=== PATIENT | female | born 1960 | race Caucasian/White ===

== ENCOUNTER → 2016-03-21 | Day surgery (SDC) | payer BC ==
[~2016-03-21] VITALS: Ht 161.3 cm; Wt 89.4 kg
[2016-03-21] VITALS (8 sets, daily range): BP systolic 139–151; BP diastolic 77–92
[~2016-03-21] MED LIST: AMOXICILLIN500 MG ORAL; LR 1000ml 1,000 ML IV SCH; LR 1000ml 1,000 ML IVLG SCH; LR 1000ml ONE; Propofol 10mg/ml 20ml IV ONE; ZOLOFT100 MG ORAL; fentaNYL 100 mcg/2 mL IV PRN
--- NOTE | 2016-03-21 10:07 | Anethesia Preoperative Eval ---
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 Surgical Procedure: Colonoscopy, EGD Allergies: Coded Allergies: No Known Allergies (Unverified , 03/18/16) Medications: see eMAR Past Medical History Cardiovascular: Denies: CAD, HTN, CT, arrhythmia, other, valve dz Pulmonary: Reports: SHANIQUE, Denies: COPD, asthma, other Gastrointestinal/Genitourinary: Denies: CRI, ESRD, GERD, other Neurologic/Psychiatric: Reports: depression/anxiety, Denies: CVA, TIA, dementia, other Endocrine: Denies: DM, hypothyroidism, other, steroids HEENT: Denies: [place] (L), [place] (R), cataract (L), cataract (R), glaucoma, other Hematology/Immune: Denies: DVT, anemia, bleeding disorder, other Musculoskeletal/Integumentary: Denies: DDD, DJD, OA, RA, edema, other PMH Narrative: SHANQIUE, adrenal tumor PSxH Narrative: Ankle, knee, uterine cystectomy Anesthesia Pre-op Phys. Exam Physician Exam Last Vital Signs Date Time Temp Pulse Resp B/P Pulse Ox O2 Delivery O2 Flow Rate FiO2 03/21/16 09:53 98.9 75 17 141/77 96 Room Air Constitutional: NAD Neurologic: CN 2-12 intact Cardiovascular: RRR, no M/R/G Respiratory: CTA Gastrointestinal: S/NT/ND Airway Exam Mallampati Score: Class II MO: full ROM: full Teeth: intact Anesthesia Pre-op A/P Risk Assessment & Plan Assessment: Colonoscopy, EGD Plan: GA, TIVA Status Change Before Surgery: No Pre-Antibiotics Drug: None LUNA DAVISON M.D. Mar 21, 2016 10:07
--- NOTE | 2016-03-21 10:08 | Immediate Post-Op Evaluation ---
Immediate Post-Op Evalulation Immediate Post-Op Evalulation Procedure: GD, Colonoscopy Date of Evaluation: Mar 21, 2016 Time of Evaluation: 11:34 IV Fluids: 500 Blood Pressure Systolic: 141 Blood Pressure Diastolic: 92 Pulse Rate: 60 Respiratory Rate: 18 O2 Sat by Pulse Oximetry: 99 Temperature (Fahrenheit): 98.0 Pain Score (1-10): 0 Nausea: No Vomiting: No Complications No complication Patient Status: awake, patent, none Hydration Status: adequate Drug: None LUNA DAVISON M.D. Mar 21, 2016 10:08
--- NOTE | 2016-03-21 10:56 | Short Stay Surgery H&P ---
History of Present Illness History of Present Illness Chief Complaint see paper H&P HPI Jackie Michele is a 55 year old female who was admitted on for Colon Screening Patient History Allergies: Coded Allergies: No Known Allergies (Unverified , 03/18/16) PAST MEDICAL HISTORY: Past Surgeries: Social History: Medication History Scheduled Amoxicillin* (Amoxil*), 500 MG ORAL BID, (Reported) Sertraline Hcl* (Zoloft*), 100 MG ORAL DAILY, (Reported) Physical Exam Vital Signs Last Vital Signs Date Time Temp Pulse Resp B/P Pulse Ox O2 Delivery O2 Flow Rate FiO2 03/21/16 09:53 98.9 75 17 141/77 96 Room Air Plan Attestation Are the patient's medical conditions optimized for surgery? PHAM CADET Mar 21, 2016 10:56
--- NOTE | 2016-03-21 10:57 | Pre-Procedure Note/Attestation ---
Pre-Procedure Note/Attestation Complete Prior to Procedure Planned Procedure: not applicable Procedure Narrative: EGD/Colon Indications for Procedure Pre-Operative Diagnosis: Abnormal CT screening colon Attestation I attest that I discussed the nature of the procedure; its benefits; risks and complications; and alternatives (and the risks and benefits of such alternatives ), prior to the procedure, with the patient (or the patient's legal apprenticeship training representative). I attest that, if there was a reasonable possibility of needing a blood transfusion, the patient (or the patient's legal apprenticeship training representative) was given the [facility] standardized written summary, pursuant to the Papo Gabe Blood Safety Act ([place] Health and Safety Code # 1645, as amended). I attest that I re-evaluated the patient just prior to the surgery and that there has been no change in the patient's H&P, except as documented below: PHAM CADET Mar 21, 2016 10:57
--- NOTE | 2016-03-21 11:35 | 48 Hour Post Anesthesia Eval ---
Post Anesthesia Evaluation Procedure: GD, Colonoscopy Date of Evaluation: Mar 21, 2016 Time of Evaluation: 12:00 Blood Pressure Systolic: 147 0: 84 Pulse Rate: 62 Respiratory Rate: 14 O2 Sat by Pulse Oximetry: 100 Airway: patent Nausea: No Vomiting: No Pain Intensity: 0 Hydration Status: adequate Cardiopulmonary Status: Stable Mental Status/LOC: patient returned to baseline Follow-up Care/Observations: As per GI Post-Anesthesia Complications: No anesthetic complication Follow-up care needed: N/A LUNA DAVISON M.D. Mar 21, 2016 11:35
--- NOTE | 2016-03-21 18:47 | Operative Note - Dictated ---
DATE OF OPERATION: 03/21/2016 PROCEDURE: Upper gastrointestinal endoscopy with biopsy as well as colonoscopy with biopsy. SURGEON: Farideh Wheatley M.D. ANESTHESIA: Please see the separate anesthesiologist notes for details. PRE-ENDOSCOPIC DIAGNOSIS: Abnormal CT scan and need for screening colonoscopy. POST-ENDOSCOPIC DIAGNOSES: 1. Mild erosive gastritis status post biopsy of the antrum. 2. Thickened versus diminutive polyp present in the colon status post biopsy. 3. Mild internal hemorrhoids. PROCEDURE: The procedure, its risks, indications, alternatives, and possible complications were explained to the patient and informed consent was obtained. The patient was then sedated in the left lateral decubitus position. A diagnostic upper endoscope was introduced through the oropharynx and advanced to the duodenum. The endoscope was then gradually withdrawn. The mucosa was examined carefully. Examination of the upper gastrointestinal mucosa revealed mildly erosive gastritis in the antrum. Biopsies were sent to pathology for review. There was otherwise no other findings. The endoscope was removed. Rectal exam was done and the colonoscope was introduced in the rectum and advanced to the cecum without difficulty. The cecum was identified by the appearance of the ileocecal valve. The colonoscope was then gradually withdrawn. The mucosa examined carefully. Examination of colonic mucosa revealed a diminutive polyp versus thickened fold in the colon, which was biopsied and sent to pathology for review. Retroflex view of the rectum revealed mild internal hemorrhoids. The colonoscope was removed. The patient was sent to recovery in good condition. COMPLICATIONS: None. RECOMMENDATIONS: 1. Follow up biopsy results. 2. Check and treat Helicobacter pylori if positive. 3. Outpatient oncology evaluation regarding adrenal mass. Thank you for asking me to participate in the care of this patient. Farideh Wheatley M.D. DR: Yvonne JOB#: [id number] CC: Maximo Nguyen M.D.; Fax#: [phone] Lancaster M.D. ; Fax#: [phone]
--- NOTE | 2016-03-29 14:29 | Brief Operative Note ---
Immediate Post Operative Note Operative Note Chief Complaint: abnormal CT, screen colon Pre-op Diagnosis: Abnormal CT screening colon Procedure: EGD colon Post-op Diagnosis: 1. Mild erosive gastritis status post biopsy of the antrum. 2. Thickened fold versus diminutive polyp present in the colon status post biopsy. 3. Mild internal hemorrhoids. Surgeon: sergio Anesthesiologist: see report Anesthesia: MAC Specimen: yes Complications: none Condition: stable Estimated Blood Loss: none Drains: none Implant(s) used?: No PHAM CADET Mar 29, 2016 14:29
== END | disposition home or self-care (01) ==
LOC: GAS 09:18
DX: Z12.11 Encounter for screening for malignant neoplasm of colon (principal); K63.5 Polyp of colon; K64.8 Other hemorrhoids; K29.70 Gastritis, unspecified, without bleeding; K31.9 Disease of stomach and duodenum, unspecified; F41.9 Anxiety disorder, unspecified; F32.9 Major depressive disorder, single episode, unspecified; G47.33 Obstructive sleep apnea (adult) (pediatric)
CPT/HCPCS: 43239; 45380; J2704; J7120; 94003; 94150